=== PATIENT | female | born 1960 | race African-American/Black ===

== ENCOUNTER 2017-12-28 01:02 | Emergency (ER) | payer MEDICARE, OTHER ==
[~2017-12-28] VITALS: Ht 160 cm; Wt 87.3 kg
[~2017-12-28 01:02] MED LIST: AMLO-511 PO; CYCL10TA7 PO; HYDR12.54 PO
[2017-12-28] MEDS ORDERED: AMLO-511 PO (01:09)
[2017-12-28] MEDS ORDERED: HYDR25TA PO (01:09)
[2017-12-28 03:11] LABS: INFLUENZA TYPE A NEGATIVE FOR TYPE A (NEGATIVE); INFLUENZA TYPE B NEGATIVE FOR TYPE B (NEGATIVE)
[2017-12-28] MEDS ORDERED: KETOROLAC TROMETHAMINE 60 MG/2 ML VIAL IM ONE (04:30)
[2017-12-28] MEDS ORDERED: PredniSONE 20 MG TABLET PO ONE (04:30)
[2017-12-28 04:32] VITALS: BP 124/79
== END 2017-12-28 04:35 | disposition home or self-care (01) ==
LOC: EMS 01:06
DX: R68.84 Jaw pain (principal); G89.29 Other chronic pain; I10 Essential (primary) hypertension; Z88.2 Allergy status to sulfonamides; Z88.6 Allergy status to analgesic agent
CPT/HCPCS: 87804; 96372; 99284; J1885; J7512

== ENCOUNTER 2019-02-15 12:26 | Emergency (ER) | payer MEDICARE, OTHER ==
[~2019-02-15] VITALS: Ht 162.6 cm; Wt 81.8 kg
[~2019-02-15 12:26] MED LIST changes: +HYDR25TA PO
[2019-02-15] MEDS ORDERED: METF-960 PO (12:39)
[2019-02-15] MEDS ORDERED: HYDR-3706 PO (12:39)
[2019-02-15] MEDS ORDERED: PRED5 PO (12:39)
[2019-02-15] MEDS ORDERED: INSNPH SQ (12:39)
[2019-02-15] MEDS ORDERED: TOCI80VI IV (12:39)
[2019-02-15 12:49] LABS: GLUCOSE,POINT OF CARE 110 MG/DL (70-110)
[2019-02-15] MEDS ORDERED: DEXAMETHASONE SOD PHOS 4 MG/ML 5 ML VIAL IM ONE (14:30)
[2019-02-15 14:36] VITALS: BP 134/83
[2019-02-15] MEDS ORDERED: HYDR-4065 PO (14:43)
[2019-02-15] MEDS ORDERED: TRIA1CAP6 PO (14:43)
[2019-02-15] MEDS ORDERED: METF500T7 PO (14:43)
== END 2019-02-15 14:44 | disposition home or self-care (01) ==
LOC: EMS 12:26
DX: R13.10 Dysphagia, unspecified (principal); J02.9 Acute pharyngitis, unspecified; E11.9 Type 2 diabetes mellitus without complications; I10 Essential (primary) hypertension; G89.29 Other chronic pain; Z88.2 Allergy status to sulfonamides; Z88.6 Allergy status to analgesic agent; Z79.4 Long term (current) use of insulin; Z79.84 Long term (current) use of oral hypoglycemic drugs
CPT/HCPCS: 70490; 82948; 82962; 87430; 96372; 99284; J1100